=== PATIENT | male | born 1980 | race American Indian/Alaskan Native ===

== ENCOUNTER 2016-12-01 16:35 | Emergency (ER) | payer MEDICAID ==
[2016-12-01 16:43] VITALS: BP 150/99
[2016-12-01] MEDS ORDERED: Penicillin G Benzathine/Procaine 600-600 1.2 Millunits/2 ML Syringe IM ONE ×2 (17:04→17:26)
[2016-12-01] MEDS ORDERED: Ibuprofen 800 MG Tab PO ONE (17:07)
--- NOTE | 2016-12-01 17:10 | EDM.PDOC ---
ED HPI GENERAL MEDICAL PROBLEM - General Chief Complaint: ENT Problem Stated Complaint: ABSCESS TOOTH ACHE Time Seen by Provider: 12/01/16 17:08 Source of Information: Reports: Patient History Limitations: Reports: No Limitations - History of Present Illness INITIAL COMMENTS - FREE TEXT/NARRATIVE: Pt states that he has an abscess for the past 2 days. Onset Date: 11/29/16 Duration: Getting Worse Location: Reports: Head Quality: Reports: Sharp, Throbbing Severity: Moderate Improves with: Reports: Movement Right Upper Gums Pain Score (Numeric/FACES): 5 - Related Data Allergies Allergy/AdvReac Type Severity Reaction Status Date / Time No Known Allergies Allergy Verified 12/01/16 16:39 Home Meds: Home Meds Insulin Glarg,Human.Rec.Analog [LantUS Solostar] 42 unit SUBCUT DAILY 05/11/14 [ History] Aspirin [Ecotrin] 81 mg PO DAILY 10/20/14 [History] Insulin Lispro [HumaLOG] 15 unit SQ TID 10/20/14 [History] Gabapentin [Neurontin] 300 mg PO BEDTIME 08/22/15 [History] Lisinopril [Zestril] 10 mg PO BID 08/22/15 [History] Past Medical History HEENT History: Reports: None Cardiovascular History: Reports: None Respiratory History: Reports: None Gastrointestinal History: Reports: None Genitourinary History: Reports: None Musculoskeletal History: Reports: None Neurological History: Reports: None Psychiatric History: Reports: None Endocrine/Metabolic History: Reports: Diabetes, Type II Hematologic History: Reports: None Immunologic History: Reports: None Oncologic (Cancer) History: Reports: None Dermatologic History: Reports: Cellulitis - Infectious Disease History Infectious Disease History: Reports: MRSA Social & Family History - Family History Family Medical History: Noncontributory HEENT: Reports: None Cardiac: Reports: None Respiratory: Reports: None GI: Reports: None Neurological: Reports: None Psychiatric: Reports: None Endocrine/Metabolic: Reports: None Immunologic: Reports: Other (See Below) Oncologic: Reports: None - Tobacco Use Smoking Status *Q: Current Every Day Smoker Years of Tobacco use: 15 Packs/Tins Daily: 0.5 Used Tobacco, but Quit: No Second Hand Smoke Exposure: No - Caffeine Use Caffeine Use: Reports: Coffee, Energy Drinks, Soda, Tea - Alcohol Use Days Per Week of Alcohol Use: 0 - Recreational Drug Use Recreational Drug Use: No Recreational Drug Type: Reports: Marijuana/Hashish - Living Situation & Occupation Living situation: Reports: Single, with Family Occupation: Disabled ED ROS ENT - Review of Systems Review Of Systems: See Below HEENT: Reports: Other (abscess to roof of mouth) ED EXAM, ENT - Physical Exam Exam: See Below Exam Limited By: No Limitations General Appearance: Alert, WD/WN, No Apparent Distress Mouth/Throat: Dental Abcess, Dental Pain ED ENT PROCEDURES - Additional/Other Procedure(s) Other (Free Text) Procedure(s): dental abscess aspiration with scant purulent drainage. Course - Vital Signs Last Recorded V/S: Last Vital Signs Temp 97.6 F 12/01/16 16:41 Pulse 100 12/01/16 16:41 Resp 16 12/01/16 16:41 BP 150/99 H 12/01/16 16:41 Pulse Ox 99 12/01/16 16:41 - Orders/Labs/Meds Meds: Medications Discontinued Medications Generic Name Dose Route Start Last Admin Trade Name Radha PRN Reason Stop Dose Admin Ibuprofen 800 mg 12/01/16 17:07 Motrin PO 12/01/16 17:08 ONETIME ONE Penicillin G Procaine/Benzathine 2 millunits 12/01/16 17:04 Bicillin C-R 600/600 IM 12/01/16 17:05 ONETIME ONE Departure - Departure Time of Disposition: 17:25 Disposition: Home, Self-Care 01 Condition: Good Clinical Impression: Dental abscess - Discharge Information Instructions: Dental Abscess Forms: ED Department Discharge Additional Instructions: take the antibiotic for 1 week. return for any worsening symptoms. Follow up in 3-4 days in clinic
== END 2016-12-01 17:33 | disposition home or self-care (01) ==
LOC: DL.ED 16:35
DX: K04.7 Periapical abscess without sinus (principal); E11.9 Type 2 diabetes mellitus without complications; F17.210 Nicotine dependence, cigarettes, uncomplicated; Z79.4 Long term (current) use of insulin; Z79.82 Long term (current) use of aspirin
CPT/HCPCS: 41800; 96372; 99282; A9270; J0558

== ENCOUNTER 2017-09-26 23:12 | Emergency (ER) | payer MEDICAID ==
[2017-09-26 23:19] VITALS: BP 178/101
[2017-09-26] MEDS ORDERED: Cephalexin 500 MG Cap PO ONE (23:39)
[2017-09-26] MEDS ORDERED: Acetaminophen 325 MG Tab PO ONE (23:39)
--- NOTE | 2017-09-26 23:39 | EDM.PDOC ---
ED HPI GENERAL MEDICAL PROBLEM - General Chief Complaint: General Stated Complaint: TOOTHACHE [id number] Time Seen by Provider: 09/26/17 23:30 Source of Information: Reports: Patient History Limitations: Reports: No Limitations - History of Present Illness INITIAL COMMENTS - FREE TEXT/NARRATIVE: c/o left dental pain to left lower jaw. Has dental appointment on friday to have tooth extracted. Taking Ibuprofen 800mg without relief Treatments FRINGE KNOTTER: Reports: NSAIDS Left Lower Tooth/Teeth Pain Score (Numeric/FACES): 8 - Related Data Allergies Allergy/AdvReac Type Severity Reaction Status Date / Time No Known Allergies Allergy Verified 09/26/17 23:22 Home Meds: Home Meds Insulin Glarg,Human.Rec.Analog [LantUS Solostar] 42 unit SUBCUT DAILY 05/11/14 [ History] Aspirin [Ecotrin] 81 mg PO DAILY 10/20/14 [History] Insulin Lispro [HumaLOG] 15 unit SQ TID 10/20/14 [History] Past Medical History HEENT History: Reports: None Cardiovascular History: Reports: None Respiratory History: Reports: None Gastrointestinal History: Reports: None Genitourinary History: Reports: None Musculoskeletal History: Reports: None Neurological History: Reports: None Psychiatric History: Reports: None Endocrine/Metabolic History: Reports: Diabetes, Type II Hematologic History: Reports: None Immunologic History: Reports: None Oncologic (Cancer) History: Reports: None Dermatologic History: Reports: Cellulitis - Infectious Disease History Infectious Disease History: Reports: MRSA Social & Family History - Family History Family Medical History: Noncontributory HEENT: Reports: None Cardiac: Reports: None Respiratory: Reports: None GI: Reports: None Neurological: Reports: None Psychiatric: Reports: None Endocrine/Metabolic: Reports: None Immunologic: Reports: Other (See Below) Oncologic: Reports: None - Tobacco Use Smoking Status *Q: Current Every Day Smoker Years of Tobacco use: 15 Packs/Tins Daily: 0.5 Used Tobacco, but Quit: No Second Hand Smoke Exposure: No - Caffeine Use Caffeine Use: Reports: Coffee, Soda - Alcohol Use Days Per Week of Alcohol Use: 0 - Recreational Drug Use Recreational Drug Use: No Recreational Drug Type: Reports: Marijuana/Hashish - Living Situation & Occupation Living situation: Reports: Single, with Family Occupation: Disabled ED ROS GENERAL - Review of Systems Review Of Systems: ROS reveals no pertinent complaints other than HPI. ED EXAM, GENERAL - Physical Exam Exam: See Below Exam Limited By: No Limitations General Appearance: Alert, Mild Distress Ears: Normal External Exam, Normal TMs Nose: Normal Inspection Throat/Mouth: Normal Lips, Normal Teeth (No gross obvious decay. mild swelling outer lower left jaw and tenderness with palpation to lower left.) Head: Atraumatic, Normocephalic Neck: Normal Inspection, Lymphadenopathy (L) (mild) Respiratory/Chest: No Respiratory Distress, Lungs Clear Cardiovascular: Normal Peripheral Pulses, Regular Rate, Rhythm Neurological: Alert, Oriented, Normal Cognition Skin Exam: Warm, Dry, Intact, Normal Color Course - Vital Signs Last Recorded V/S: Last Vital Signs Temp 96.8 F 09/26/17 23:18 Pulse 107 H 09/26/17 23:18 Resp 16 09/26/17 23:18 BP 178/101 H 09/26/17 23:18 Pulse Ox 100 09/26/17 23:18 - Orders/Labs/Meds Meds: Medications Discontinued Medications Generic Name Dose Route Start Last Admin Trade Name Radha PRN Reason Stop Dose Admin Acetaminophen 650 mg 09/26/17 23:39 09/26/17 23:47 Tylenol PO 09/26/17 23:40 650 mg NOW ONE Administration Cephalexin 500 mg 09/26/17 23:39 09/26/17 23:49 Keflex PO 09/26/17 23:40 500 mg ONETIME ONE Administration Departure - Departure Time of Disposition: 23:40 Disposition: Home, Self-Care 01 Condition: Good Clinical Impression: Pain, dental - Discharge Information Instructions: Dental Abscess, [id number] Forms: ED Department Discharge Additional Instructions: alternate tylenol and ibuprofen for discomfort orajel or similar to area as needed keflex 500mg one 4 times daily for one week follow with dentist on Friday as scheduled avoid chewing on affected side avoid extreme temperatures of liquids
== END 2017-09-26 23:51 | disposition home or self-care (01) ==
LOC: DL.ED 23:12
DX: K08.89 Other specified disorders of teeth and supporting structures (principal); E11.9 Type 2 diabetes mellitus without complications; Z79.4 Long term (current) use of insulin; Z79.82 Long term (current) use of aspirin; F17.210 Nicotine dependence, cigarettes, uncomplicated
CPT/HCPCS: 99282; A9270

== ENCOUNTER 2018-03-22 09:40 | Emergency (ER) | payer MEDICAID ==
[2018-03-22 09:49] VITALS: BP 144/82
[2018-03-22] MEDS ORDERED: Azithromycin 250 MG Tab PO ONE (10:02)
[2018-03-22] MEDS ORDERED: predniSONE 20 MG Tab PO ONE (10:03)
--- NOTE | 2018-03-22 10:05 | EDM.PDOC ---
Scribed by Alyssa Donohue 03/22/18 0956 for Rajesh Garrido MD ED HPI GENERAL MEDICAL PROBLEM - General Chief Complaint: ENT Problem Stated Complaint: THROAT Time Seen by Provider: 03/22/18 09:44 Source of Information: Reports: Patient, RN, RN Notes Reviewed History Limitations: Reports: No Limitations - History of Present Illness INITIAL COMMENTS - FREE TEXT/NARRATIVE: Patient presents to ER with complaint of sore throat for a couple of days. He has had subjective fevers. He has not measured his temperature. It hurts to swallow. Denies abdominal pain, nausea or vomiting. No known sick contacts. Onset Date: 03/20/18 Duration: Getting Worse Location: Reports: Other (throat) Quality: Reports: Ache Severity: Moderate Improves with: Reports: None Worsens with: Reports: None Associated Symptoms: Reports: No Other Symptoms Throat Pain Score (Numeric/FACES): 8 - Related Data Allergies Allergy/AdvReac Type Severity Reaction Status Date / Time No Known Allergies Allergy Verified 03/22/18 09:47 Home Meds: Home Meds Insulin Glarg,Human.Rec.Analog [LantUS Solostar] 42 unit SUBCUT DAILY 05/11/14 [ History] Aspirin [Ecotrin] 81 mg PO DAILY 10/20/14 [History] Insulin Lispro [HumaLOG] 15 unit SQ TID 10/20/14 [History] Past Medical History HEENT History: Reports: None Cardiovascular History: Reports: None Respiratory History: Reports: None Gastrointestinal History: Reports: None Genitourinary History: Reports: None Musculoskeletal History: Reports: None Neurological History: Reports: None Psychiatric History: Reports: None Endocrine/Metabolic History: Reports: Diabetes, Type II Hematologic History: Reports: None Immunologic History: Reports: None Oncologic (Cancer) History: Reports: None Dermatologic History: Reports: Cellulitis - Infectious Disease History Infectious Disease History: Reports: MRSA Social & Family History - Family History Family Medical History: Noncontributory HEENT: Reports: None Cardiac: Reports: None Respiratory: Reports: None GI: Reports: None Neurological: Reports: None Psychiatric: Reports: None Endocrine/Metabolic: Reports: None Immunologic: Reports: Other (See Below) Oncologic: Reports: None - Caffeine Use Caffeine Use: Reports: Coffee, Soda - Living Situation & Occupation Living situation: Reports: Single, with Family Occupation: Disabled ED ROS ENT - Review of Systems Review Of Systems: ROS reveals no pertinent complaints other than HPI. ED EXAM, ENT - Physical Exam Exam: See Below Exam Limited By: No Limitations General Appearance: Alert, WD/WN, No Apparent Distress Eye Exam: Bilateral Eye: Normal Inspection Ears: Normal External Exam, Normal Canal, Hearing Grossly Normal, Normal TMs Nose: Normal Inspection, Normal Mucousa, No Blood Mouth/Throat: Normal Lips, Pharyngeal Erythema, Throat Pain, Tonsillar Exudates , Tonsillar Swelling (L>Rt) Head: Atraumatic, Normocephalic Neck: Other (shoddy cervical lymphadenopathy. No nuchal rigidity. ) Respiratory/Chest: No Respiratory Distress, Lungs Clear, Normal Breath Sounds, No Accessory Muscle Use, Chest Non-Tender Cardiovascular: Regular Rate, Rhythm Neurological: Alert, Oriented, No Motor/Sensory Deficits Psychiatric: Normal Mood Skin: Warm, Dry, Intact, Normal Color, No Rash Course - Vital Signs Last Recorded V/S: Last Vital Signs Temp 35.9 C 03/22/18 09:48 Pulse 117 H 03/22/18 09:48 Resp 16 03/22/18 09:48 BP 144/82 H 03/22/18 09:48 Pulse Ox 100 03/22/18 09:48 - Orders/Labs/Meds Labs: Rapid strep: Positive. Meds: Medications Discontinued Medications Generic Name Dose Route Start Last Admin Trade Name Radha PRN Reason Stop Dose Admin Azithromycin 500 mg 03/22/18 10:02 Zithromax PO 03/22/18 10:03 ONETIME ONE Prednisone 60 mg 03/22/18 10:03 Prednisone PO 03/22/18 10:04 ONETIME ONE Departure - Departure Time of Disposition: 10:03 Disposition: Home, Self-Care 01 Condition: Good Clinical Impression: Strep pharyngitis - Discharge Information *PRESCRIPTION DRUG MONITORING PROGRAM REVIEWED*: Not Applicable *COPY OF PRESCRIPTION DRUG MONITORING REPORT IN PATIENT TROY: Not Applicable Instructions: Strep Throat Forms: ED Department Discharge Additional Instructions: RX: Zithromax 250mg. RX: Prednisone 20mg. Frequent salt water gargles until improved. Follow up in clinic in 2 to 3 days if not improved. I have read and agree with the documentation that has been completed regarding this visit. By signing this record, I attest that the documentation was completed in my physical presence and is an accurate record of the encounter.
== END 2018-03-22 10:12 | disposition home or self-care (01) ==
LOC: DL.ED 09:40
DX: J02.0 Streptococcal pharyngitis (principal); E11.9 Type 2 diabetes mellitus without complications; Z79.4 Long term (current) use of insulin; Z79.82 Long term (current) use of aspirin
CPT/HCPCS: 87430; 99283; A9270

== ENCOUNTER 2019-07-17 00:51 | Emergency (ER) | payer MEDICAID ==
[2019-07-17] MEDS ORDERED: Insulin Regular, Human 100 Units/ML 3 ML Vial SUBCUT ONE (01:25)
[2019-07-17] MEDS ORDERED: Cephalexin 500 MG Cap PO ONE (01:25)
--- NOTE | 2019-07-17 01:34 | EDM.PDOC ---
ED HPI GENERAL MEDICAL PROBLEM - General Chief Complaint: Skin Complaint Stated Complaint: DIABETIC, TOE INFECTED Time Seen by Provider: 07/17/19 01:20 Source of Information: Reports: Patient History Limitations: Reports: No Limitations - History of Present Illness INITIAL COMMENTS - FREE TEXT/NARRATIVE: the patient comes emergency department today with complaints of an ingrown toenail to the right great toe. He hit his toe a couple of weeks ago on the edge of a bed frame and since then he has developed a ingrown toenail. He does notice some clear drainage as well as some mild redness and swelling on the toe. He does not have much pain. He is a diabetic who has not taken his insulin for 2 months because his Medicaid has and he just hasn't had time in the last 2 months to go and fill the paperwork to get his Medicaid reactivated. He refuses to go to [facility] to get his medications. He relates that he just doesn't have time to go all the way up to [facility]. He is currently unemployed and lives at home with his girlfriend. When he does have his insulin he does not use his NovoLog because it makes him feel like he's hypoglycemic. So he only takes his Lantus. He has no abdominal pain. No nausea no vomiting. No weakness dizziness lightheadedness. - Related Data Allergies Allergy/AdvReac Type Severity Reaction Status Date / Time No Known Allergies Allergy Verified 07/17/19 01:03 Home Meds: Home Meds Insulin Glarg,Human.Rec.Analog [LantUS Solostar] 50 unit SUBCUT BEDTIME [History] Aspirin [Ecotrin] 81 mg PO DAILY 10/20/14 [History] Insulin Lispro [HumaLOG] 15 unit SQ TID 10/20/14 [History] Albuterol [Proventil Neb Soln] 1 dose INH ASDIRECTED PRN 06/09/19 [History] Ibuprofen [Motrin] 800 mg PO ASDIRECTED 06/09/19 [History] Past Medical History HEENT History: Reports: None Cardiovascular History: Reports: None Respiratory History: Reports: Other (See Below) Other Respiratory History: URI Gastrointestinal History: Reports: None Genitourinary History: Reports: None Musculoskeletal History: Reports: None Neurological History: Reports: None Psychiatric History: Reports: None Endocrine/Metabolic History: Reports: Diabetes, Type II Hematologic History: Reports: None Immunologic History: Reports: None Oncologic (Cancer) History: Reports: None Dermatologic History: Reports: Cellulitis - Infectious Disease History Infectious Disease History: Reports: MRSA - Past Surgical History Head Surgeries/Procedures: Reports: None Social & Family History - Family History Family Medical History: Noncontributory HEENT: Reports: None Cardiac: Reports: None Respiratory: Reports: None GI: Reports: None Neurological: Reports: None Psychiatric: Reports: None Endocrine/Metabolic: Reports: None Immunologic: Reports: Other (See Below) Oncologic: Reports: None - Caffeine Use Caffeine Use: Reports: Coffee, Soda, Tea - Living Situation & Occupation Living situation: Reports: Single, with Family Occupation: Disabled ED ROS GENERAL - Review of Systems Review Of Systems: Comprehensive ROS is negative, except as noted in HPI. ED EXAM, SKIN/RASH Exam: See Below Exam Limited By: No Limitations General Appearance: Alert, WD/WN, No Apparent Distress Respiratory/Chest: No Respiratory Distress, Lungs Clear, Normal Breath Sounds Cardiovascular: Normal Peripheral Pulses, Regular Rate, Rhythm Peripheral Pulses: 2+: Posterior Tibial (L), Posterior Tibial (R), Dorsalis Pedis (L), Dorsalis Pedis (R) GI/Abdominal: Normal Bowel Sounds, Soft, Non-Tender Extremities: No: Normal Inspection (on the medial aspect of the right great toe there is a small amount of ingrownail with some crusting and clear drainage. There is a very small amount of mild erythema no swelling. Capillary refill is normal. Rest of the foot is unremarkable.) Neurological: Alert, Oriented, No Motor/Sensory Deficits Psychiatric: Normal Affect Skin: Warm, Dry, Intact Course - Orders/Labs/Meds Orders: Active Orders 24 hr Category Date Time Status Accu Check [Blood Glucose Check, Bedside] [RC] ONETIME Care 07/17/19 00:59 Active Insulin Regular, Human [HumuLIN R] Med 07/17/19 01:25 Once 10 unit SUBCUT ONETIME ONE cephALEXin [Keflex] Med 07/17/19 01:25 Once 500 mg PO ONETIME ONE - Re-Assessments/Exams Free Text/Narrative Re-Assessment/Exam: 07/17/19 01:40 Blood sugar 351 Regular insulin 10 units. the toe does not really appear to be infected is more inflamed and irritated from the ingrown toenail. Despite this the patient is a diabetic who is poorly controlled at best so I will put him on antibiotics. I typically would be able to do a partial matrixectomy on this patient in the emergency department although with his uncontrolled diabetes I don't think it's appropriate and should be done by podiatry on the outpatient clinic for appropriate follow-up and management. I discussed at length the importance of him getting his medical assistance taking care of that he can control his diabetes. If he does not see podiatry this problem with his told his recur. I also stressed that as he is having problems with his insulin maybe he should go to [facility] where he is able to get his medications but he doesn't want to go all the way out there. I spent an extended period of time talking with this patient about the importance of self driven care for his diabetes and to follow medical recommendations or he could have worsening complications from his DM. I discussed ways of changing his Novolog so that he doesn't have the low feeling even though his blood sugars are high that his body is accustomed to. He is understanding of this and his questions answered. Departure - Departure Time of Disposition: :29 Disposition: Home, Self-Care 01 Clinical Impression: Ingrown toenail of right foot with infection, Diabetic foot infection, Hyperglycemia, Poor compliance with medication - Discharge Information Instructions: Hyperglycemia, [id number], Ingrown Toenail Additional Instructions: GET TO THE COURT HOUSE AND GET YOUR MEDICAID ACTIVE SO YOU CAN GET YOUR INSULIN Since the Novolog makes you feel low. Instead of not taking it at all try to cut it in half and let your body be more familiar with a lower blood sugar and slowly increase to the 12 units three times a day. This is much better for you than just not taking it at all. See your PCP in a week for recheck of your blood sugars. Set up an appointment with podiatry to get the ingrown toenail repaired. Soak your foot 3-4 times a day in warm water with alee dish soap and epsom salts until you see podiatry. Cephalexin 1 capsule 4 times a day for the next 7 days. First dose given in the ED and RX given to the patient. Return to the ED if new or worsening symptoms. - My Orders Last 24 Hours: My Active Orders 07/17/19 00:59 Accu Check [Blood Glucose Check, Bedside] [RC] ONETIME 07/17/19 01:25 Insulin Regular, Human [HumuLIN R] 10 unit SUBCUT ONETIME ONE cephALEXin [Keflex] 500 mg PO ONETIME ONE - Assessment/Plan Last 24 Hours: My Active Orders 07/17/19 00:59 Accu Check [Blood Glucose Check, Bedside] [RC] ONETIME 07/17/19 01:25 Insulin Regular, Human [HumuLIN R] 10 unit SUBCUT ONETIME ONE cephALEXin [Keflex] 500 mg PO ONETIME ONE Assessment:: Left great toe ingrown Hyperglycemia of DM II with poor medical compliance. Plan: GET TO THE [facility] AND GET YOUR MEDICAID ACTIVE SO YOU CAN GET YOUR INSULIN Since the Novolog makes you feel low. Instead of not taking it at all try to cut it in half and let your body be more familiar with a lower blood sugar and slowly increase to the 12 units three times a day. This is much better for you than just not taking it at all. See your PCP in a week for recheck of your blood sugars. Set up an appointment with podiatry to get the ingrown toenail repaired. Soak your foot 3-4 times a day in warm water with alee dish soap and epsom salts until you see podiatry. Cephalexin 1 capsule 4 times a day for the next 7 days. First dose given in the ED and RX given to the patient. Return to the ED if new or worsening symptoms.
[2019-07-17 01:35] VITALS: BP 171/100; PULSE 103
== END 2019-07-17 01:41 | disposition home or self-care (01) ==
LOC: DL.ED 00:51
DX: L60.0 Ingrowing nail (principal); E11.65 Type 2 diabetes mellitus with hyperglycemia; E11.621 Type 2 diabetes mellitus with foot ulcer; Z79.4 Long term (current) use of insulin; Z79.82 Long term (current) use of aspirin
CPT/HCPCS: 82962; 99283; A9270; J1815; 99284

== ENCOUNTER 2020-03-09 21:21 | Emergency (ER) | payer MEDICAID ==
[2020-03-09 21:36] VITALS: BP 171/95; PULSE 91
[2020-03-09] MEDS ORDERED: Hydrocortisone/Neomycin/Polymyxin B Otic Susp 10 ML Bottle ONE (21:47)
--- NOTE | 2020-03-09 21:49 | EDM.PDOC ---
ED HPI GENERAL MEDICAL PROBLEM - General Chief Complaint: ENT Problem Stated Complaint: EAR INFECTION CLOGGED EAR CANAL Time Seen by Provider: 03/09/20 21:46 Source of Information: Reports: Patient History Limitations: Reports: No Limitations - History of Present Illness INITIAL COMMENTS - FREE TEXT/NARRATIVE: 2 days h/o right ear pain and can't hear well. Right Ear Pain Score (Numeric/FACES): 4 - Related Data Allergies Allergy/AdvReac Type Severity Reaction Status Date / Time No Known Allergies Allergy Verified 07/17/19 01:03 Home Meds: Home Meds Insulin Glarg,Human.Rec.Analog [LantUS Solostar] 50 unit SUBCUT BEDTIME 05/11/14 [History] Aspirin [Ecotrin] 81 mg PO DAILY 10/20/14 [History] Insulin Lispro [HumaLOG] 15 unit SQ TID 10/20/14 [History] Albuterol [Proventil Neb Soln] 1 dose INH ASDIRECTED PRN 06/09/19 [History] Ibuprofen [Motrin] 800 mg PO ASDIRECTED 06/09/19 [History] Past Medical History HEENT History: Reports: None Cardiovascular History: Reports: None Respiratory History: Reports: Other (See Below) Other Respiratory History: URI Gastrointestinal History: Reports: None Genitourinary History: Reports: None Musculoskeletal History: Reports: None Neurological History: Reports: None Psychiatric History: Reports: None Endocrine/Metabolic History: Reports: Diabetes, Type II Hematologic History: Reports: None Immunologic History: Reports: None Oncologic (Cancer) History: Reports: None Dermatologic History: Reports: Cellulitis - Infectious Disease History Infectious Disease History: Reports: MRSA - Past Surgical History Head Surgeries/Procedures: Reports: None Social & Family History - Family History Family Medical History: Noncontributory HEENT: Reports: None Cardiac: Reports: None Respiratory: Reports: None GI: Reports: None Neurological: Reports: None Psychiatric: Reports: None Endocrine/Metabolic: Reports: None Immunologic: Reports: Other (See Below) Oncologic: Reports: None - Tobacco Use Smoking Status *Q: Current Every Day Smoker Years of Tobacco use: 15 Packs/Tins Daily: 1 - Caffeine Use Caffeine Use: Reports: Coffee, Soda - Recreational Drug Use Recreational Drug Use: No - Living Situation & Occupation Living situation: Reports: Single, with Family Occupation: Disabled ED ROS ENT - Review of Systems Review Of Systems: Comprehensive ROS is negative, except as noted in HPI. ED EXAM, ENT - Physical Exam Exam: See Below Exam Limited By: No Limitations General Appearance: Alert, WD/WN, No Apparent Distress Ears: Canal Swelling, Cerumen Impaction Mouth/Throat: Normal Inspection Head: Atraumatic Neck: Non-Tender, Full Range of Motion Respiratory/Chest: No Respiratory Distress Cardiovascular: Regular Rate, Rhythm GI/Abdominal: Soft, Non-Tender (Male) Exam: Deferred Rectal (Males) Exam: Deferred Neurological: Alert, Oriented, Normal Cognition, Normal Gait, No Motor/Sensory Deficits Psychiatric: Normal Affect, Normal Mood Skin: Warm, Dry, Normal Color Lymphatic: No Adenopathy Course - Vital Signs Last Recorded V/S: Last Vital Signs Temp 36.7 C 03/09/20 21:34 Pulse 91 03/09/20 21:34 Resp 16 03/09/20 21:34 BP 171/95 H 03/09/20 21:34 Pulse Ox 98 03/09/20 21:34 Departure - Departure Time of Disposition: 21:47 Disposition: Home, Self-Care 01 Condition: Good Clinical Impression: Otitis externa Qualifiers: Otitis externa type: diffuse Chronicity: acute Laterality: right Qualified Code(s): H60.311 - Diffuse otitis externa, right ear Cerumen impaction Qualifiers: Laterality: right Qualified Code(s): H61.21 - Impacted cerumen, right ear - Discharge Information Instructions: Otitis Externa, [id number] Additional Instructions: 1) don't get water into ear 2) see clinic tomorrow for ENT REFERRAL FOR WAX IMPACTION rx togo; corticosporin otic 2 drops qid x 10 days Sepsis Event Note (ED) - Evaluation Sepsis Screening Result: No Definite Risk - Focused Exam Vital Signs: Vital Signs Temp Pulse Resp BP Pulse Ox 03/09/20 21:34 36.7 C 91 16 171/95 H 98
== END 2020-03-09 21:51 | disposition home or self-care (01) ==
LOC: DL.ED 21:21
DX: H60.311 Diffuse otitis externa, right ear (principal); H60.501 Unspecified acute noninfective otitis externa, right ear; H61.21 Impacted cerumen, right ear; E11.9 Type 2 diabetes mellitus without complications; F17.210 Nicotine dependence, cigarettes, uncomplicated; Z79.4 Long term (current) use of insulin; Z79.82 Long term (current) use of aspirin; Z79.899 Other long term (current) drug therapy
CPT/HCPCS: 99282; A9270; 99283

== ENCOUNTER 2020-06-08 16:59 | Emergency (ER) | payer MEDICAID ==
[2020-06-08 17:13] VITALS: BP 186/105; PULSE 110
[2020-06-08] MEDS ORDERED: cefTRIAXone 250 MG Vial IM ONE (18:06)
--- NOTE | 2020-06-08 18:12 | EDM.PDOC ---
ED HPI GENERAL MEDICAL PROBLEM - General Chief Complaint: Genitourinary Problem Stated Complaint: NOT FEELING WELL Time Seen by Provider: 06/08/20 17:15 Source of Information: Reports: Patient, RN History Limitations: Reports: No Limitations - History of Present Illness INITIAL COMMENTS - FREE TEXT/NARRATIVE: 39 year-old male who present to the Er with complaints of dysuria and milky discharge. He reports dysuria began two days ago and milky discharge was noted today with urination. He had unprotected sex with a friend one month ago. He is unsure of her STD status. He denies any other partners after this incident. He denies any fever, chills, SOB, chest pain,urinary frequency/urgency and abdominal pain. Admits to having an STD once but cannot remember the type. - Related Data Allergies Allergy/AdvReac Type Severity Reaction Status Date / Time No Known Allergies Allergy Verified 06/08/20 17:13 Home Meds: Home Meds Insulin Glarg,Human.Rec.Analog [LantUS Solostar] 50 unit SUBCUT BEDTIME 05/11/14 [History] Aspirin [Ecotrin] 81 mg PO DAILY 10/20/14 [History] Insulin Lispro [HumaLOG] 10 unit SQ TID 10/20/14 [History] Albuterol [Proventil Neb Soln] 1 dose INH ASDIRECTED PRN 06/09/19 [History] Ibuprofen [Motrin] 800 mg PO ASDIRECTED 06/09/19 [History] lisinopriL [Lisinopril] 10 mg PO DAILY 06/08/20 [History] Past Medical History HEENT History: Reports: None Cardiovascular History: Reports: Hypertension Respiratory History: Reports: Other (See Below) Other Respiratory History: URI Gastrointestinal History: Reports: None Genitourinary History: Reports: None Musculoskeletal History: Reports: None Neurological History: Reports: None Psychiatric History: Reports: None Endocrine/Metabolic History: Reports: Diabetes, Type II Hematologic History: Reports: None Immunologic History: Reports: None Oncologic (Cancer) History: Reports: None Dermatologic History: Reports: Cellulitis - Infectious Disease History Infectious Disease History: Reports: MRSA - Past Surgical History Head Surgeries/Procedures: Reports: None Social & Family History - Family History Family Medical History: No Pertinent Family History HEENT: Reports: None Cardiac: Reports: None Respiratory: Reports: None GI: Reports: None Neurological: Reports: None Psychiatric: Reports: None Endocrine/Metabolic: Reports: None Immunologic: Reports: Other (See Below) Oncologic: Reports: None - Tobacco Use Tobacco Use Status *Q: Current Every Day Tobacco User Years of Tobacco use: 15 Packs/Tins Daily: 1 Second Hand Smoke Exposure: Yes - Caffeine Use Caffeine Use: Reports: Coffee, Soda - Recreational Drug Use Recreational Drug Use: No - Living Situation & Occupation Living situation: Reports: Single, with Family Occupation: Disabled ED ROS GENERAL - Review of Systems Review Of Systems: Comprehensive ROS is negative, except as noted in HPI. ED EXAM, RENAL/ - Physical Exam Exam: See Below Exam Limited By: No Limitations General Appearance: Alert, No Apparent Distress, Anxious Respiratory/Chest: No Respiratory Distress, Lungs Clear, Normal Breath Sounds, No Accessory Muscle Use, Chest Non-Tender Cardiovascular: Normal Peripheral Pulses, Regular Rate, Rhythm, No Edema, No Gallop, No JVD, No Murmur, No Rub GI/Abdominal: Normal Bowel Sounds, Soft, Non-Tender, No Organomegaly, No Distention, No Abnormal Bruit, No Mass (Male) Exam: Deferred Rectal (Males) Exam: Deferred Back Exam: Normal Inspection, Full Range of Motion. No: CVA Tenderness (L), CVA Tenderness (R) Neurological: Alert, Oriented Psychiatric: Anxious Skin Exam: Warm, Dry Lymphatic: No Adenopathy Course - Vital Signs Last Recorded V/S: Last Vital Signs Temp 97.5 F 06/08/20 17:08 Pulse 110 H 06/08/20 17:08 Resp 18 06/08/20 17:08 BP 186/105 H 06/08/20 17:08 Pulse Ox 99 06/08/20 17:08 - Orders/Labs/Meds Orders: Active Orders 24 hr Category Date Time Status CHLAMYDIA AND GONORRHEA BY [facility] Urgent Lab 06/08/20 17:21 Received Labs: Laboratory Tests 06/08/20 Range/Units 17:21 Urine Color Yellow (YELLOW) Urine Appearance Turbid (CLEAR) Urine pH 6.0 (5.0-9.0) Ur Specific Jackson 1.025 (1.005-1.030) Urine Protein >=300 H (NEGATIVE) Urine Glucose (UA) 500 H (NEGATIVE) Urine Ketones Negative (NEGATIVE) Urine Occult Blood Moderate H (NEGATIVE) Urine Nitrite Negative (NEGATIVE) Urine Bilirubin Negative (NEGATIVE) Urine Urobilinogen 0.2 (0.2-1.0) mg/dL Ur Leukocyte Esterase Negative (NEGATIVE) Urine RBC 5-10 H /HPF Urine WBC >100 H (0-5/HPF) /HPF Ur Epithelial Cells Rare (NOT SEEN) /HPF Amorphous Sediment Rare (NOT SEEN) /HPF Urine Bacteria Rare (0-FEW/HPF) /HPF Urine Mucus Rare (NOT SEEN) /LPF - Re-Assessments/Exams Free Text/Narrative Re-Assessment/Exam: Review exam findings and urinalysis with patient. Will treat him for gonorrhea as the std test is a sendout. Encouraged him to abstained from sex for at least a week. Encouraged safe sex and also to inform his partner that he was treated for an STD. Patient verbalized understanding, Departure - Departure Time of Disposition: 18:14 Disposition: Home, Self-Care 01 Condition: Good Clinical Impression: Concern about sexually transmitted disease in male without diagnosis - Discharge Information Instructions: Sexually Transmitted Disease, [id number] Additional Instructions: Encouraged safe sex and education provided. Sepsis Event Note (ED) - Evaluation Sepsis Screening Result: No Definite Risk - Focused Exam Vital Signs: Vital Signs Temp Pulse Resp BP Pulse Ox 06/08/20 17:08 97.5 F 110 H 18 186/105 H 99 - My Orders Last 24 Hours: My Active Orders 06/08/20 17:21 CHLAMYDIA AND GONORRHEA BY [facility] Urgent - Assessment/Plan Last 24 Hours: My Active Orders 06/08/20 17:21 CHLAMYDIA AND GONORRHEA BY [facility] Urgent
[2020-06-08] MEDS: Azithromycin 250 MG Tab PO ONE (18:17)
[2020-06-08] MEDS: cefTRIAXone 250 MG, Lidocaine 1% 0.9 ML IM ONE ×2 (18:20)
== END 2020-06-08 18:45 | disposition home or self-care (01) ==
LOC: DL.ED 16:59
DX: Z11.3 Encounter for screening for infections with a predominantly sexual mode of transmission (principal); I10 Essential (primary) hypertension; E11.9 Type 2 diabetes mellitus without complications; F17.210 Nicotine dependence, cigarettes, uncomplicated; Z79.4 Long term (current) use of insulin; Z79.82 Long term (current) use of aspirin; Z79.899 Other long term (current) drug therapy
CPT/HCPCS: 81001; 87491; 87591; 96372; 99283; A9270; J0696; J2001; 99282

== ENCOUNTER 2021-02-10 19:37 | Emergency (ER) | payer MEDICAID ==
[2021-02-10 19:50] VITALS: BP 162/92; PULSE 89
[2021-02-10] MEDS ORDERED: Amoxicillin/Clavulanate K 875-125 MG Tab PO ONE (20:10)
--- NOTE | 2021-02-10 20:13 | EDM.PDOC ---
ED HPI GENERAL MEDICAL PROBLEM - General Chief Complaint: General Stated Complaint: TEETH, INFECTION IN MOUTH Time Seen by Provider: 02/10/21 20:08 Source of Information: Reports: Patient, RN Notes Reviewed - History of Present Illness INITIAL COMMENTS - FREE TEXT/NARRATIVE: Pt is here for a dental infection. He noted that it was starting to get sore yesterday, but this morning he woke up and it was swollen and painful. He has had several teeth removed for recurrent infections and knows he has more that need to be removed. He denies any fevers or chills. He is otherwise feeling well. Duration: Day(s): (1-2) - Related Data Allergies Allergy/AdvReac Type Severity Reaction Status Date / Time No Known Allergies Allergy Verified 06/08/20 17:13 Home Meds: Home Meds Insulin Glarg,Human.Rec.Analog [LantUS Solostar] 50 unit SUBCUT BEDTIME 05/11/14 [History] Aspirin [Ecotrin] 81 mg PO DAILY 10/20/14 [History] Insulin Lispro [HumaLOG] 10 unit SQ TID 10/20/14 [History] Albuterol [Proventil Neb Soln] 1 dose INH ASDIRECTED PRN 06/09/19 [History] Ibuprofen [Motrin] 800 mg PO ASDIRECTED 06/09/19 [History] lisinopriL [Lisinopril] 10 mg PO DAILY 06/08/20 [History] Past Medical History HEENT History: Reports: None Cardiovascular History: Reports: Hypertension Respiratory History: Reports: Other (See Below) Other Respiratory History: URI Gastrointestinal History: Reports: None Genitourinary History: Reports: None Musculoskeletal History: Reports: None Neurological History: Reports: None Psychiatric History: Reports: None Endocrine/Metabolic History: Reports: Diabetes, Type II Hematologic History: Reports: None Immunologic History: Reports: None Oncologic (Cancer) History: Reports: None Dermatologic History: Reports: Cellulitis - Infectious Disease History Infectious Disease History: Reports: MRSA - Past Surgical History Head Surgeries/Procedures: Reports: None Social & Family History - Family History Family Medical History: No Pertinent Family History HEENT: Reports: None Cardiac: Reports: None Respiratory: Reports: None GI: Reports: None Neurological: Reports: None Psychiatric: Reports: None Endocrine/Metabolic: Reports: None Immunologic: Reports: Other (See Below) Oncologic: Reports: None - Tobacco Use Tobacco Use Status *Q: Current Every Day Tobacco User Years of Tobacco use: 20 Packs/Tins Daily: 0.5 - Caffeine Use Caffeine Use: Reports: Coffee, Soda - Living Situation & Occupation Living situation: Reports: Single, with Family Occupation: Disabled ED ROS GENERAL - Review of Systems Review Of Systems: Comprehensive ROS is negative, except as noted in HPI. ED EXAM, GENERAL - Physical Exam Exam: See Below Exam Limited By: No Limitations General Appearance: Alert, No Apparent Distress Eye Exam: Bilateral Eye: Normal Inspection Ears: Normal External Exam Throat/Mouth: Normal Voice, No Airway Compromise, Inflammation, Other (several missing teeth and caries noted) Neck: Supple, Non-Tender Respiratory/Chest: No Respiratory Distress, Lungs Clear, Normal Breath Sounds, No Accessory Muscle Use Cardiovascular: Normal Peripheral Pulses, Regular Rate, Rhythm, No Murmur GI/Abdominal: Soft, Non-Tender (Male) Exam: Deferred Rectal (Males) Exam: Deferred Neurological: Alert, Oriented, Normal Cognition Psychiatric: Normal Affect, Normal Mood Skin Exam: Warm, Dry, Intact, Normal Color, No Rash Course - Vital Signs Last Recorded V/S: Last Vital Signs Temp 96.8 F L 02/10/21 19:47 Pulse 89 02/10/21 19:47 Resp 18 02/10/21 19:47 BP 162/92 H 02/10/21 19:47 Pulse Ox 100 02/10/21 19:47 Departure - Departure Time of Disposition: 20:15 Disposition: Home, Self-Care 01 Condition: Good Clinical Impression: Dental infection - Discharge Information *PRESCRIPTION DRUG MONITORING PROGRAM REVIEWED*: Not Applicable *COPY OF PRESCRIPTION DRUG MONITORING REPORT IN PATIENT TROY: Not Applicable Additional Instructions: Augmentin twice daily for 7 days Tylenol and ibuprofen as needed for pain relief Follow up with your dentist Sepsis Event Note (ED) - Evaluation Sepsis Screening Result: No Definite Risk - Focused Exam Vital Signs: Vital Signs Temp Pulse Resp BP Pulse Ox 02/10/21 19:47 96.8 F L 89 18 162/92 H 100
== END 2021-02-10 20:21 | disposition home or self-care (01) ==
LOC: DL.ED 19:37
DX: K04.7 Periapical abscess without sinus (principal); I10 Essential (primary) hypertension; E11.9 Type 2 diabetes mellitus without complications; Z79.899 Other long term (current) drug therapy; Z79.4 Long term (current) use of insulin; Z72.0 Tobacco use
CPT/HCPCS: 99282; A9270

== ENCOUNTER 2021-11-04 02:45 | Emergency (ER) | payer MEDICAID ==
[2021-11-04 03:24] VITALS: BP 157/103; PULSE 103
[2021-11-04] MEDS ORDERED: Sodium Chloride 0.9% 1,000 ML IV ONE (03:40)
[2021-11-04] MEDS ORDERED: Glucagon,Human Recombinant 1 MG Vial IM PRN (03:42)
[2021-11-04] MEDS ORDERED: 50% Dextrose in Water 50 ML Syringe IVPUSH PRN (03:42)
[2021-11-04] MEDS ORDERED: Insulin Regular, Human 100 Units/ML 3 ML Vial IV ONE (03:42)
[2021-11-04 04:03] LABS: CHLORIDE,CL 100 mmol/L (98-107); SODIUM,NA 134 mmol/L (136-145)
== END 2021-11-04 05:07 | disposition home or self-care (01) ==
LOC: DL.ED 02:45
DX: E11.65 Type 2 diabetes mellitus with hyperglycemia (principal); I10 Essential (primary) hypertension; F17.210 Nicotine dependence, cigarettes, uncomplicated; Z79.899 Other long term (current) drug therapy; Z79.82 Long term (current) use of aspirin; Z79.4 Long term (current) use of insulin
CPT/HCPCS: 36415; 80053; 81001; 82009; 82947; 83605; 85025; 96360; 99284; J1815; J7030

== ENCOUNTER 2022-11-09 22:20 | Emergency (ER) | payer MEDICAID ==
[2022-11-09] MEDS ORDERED: Sodium Chloride 0.9% 1,000 ML IV ONE (23:16)
[2022-11-09] MEDS ORDERED: Sodium Chloride 0.9% 10 ML Syringe FLUSH PRN (23:16)
[2022-11-09] MEDS: Iopamidol 755 Mg/ML 100 ML Bottle IVPUSH ONE (23:34)
[2022-11-09] MEDS: Ketorolac 30 MG/ML SDV IVPUSH ONE ×2 (23:34→23:36)
[2022-11-09 23:39] LABS: BASOPHILS PERCENT AUTO 0.5 % (0.0-1.0); EOSINOPHILS PERCENT AUTO 4.3 % (1.0-3.0); HEMATOCRIT 37.5 % (40.0-54.0); HEMOGLOBIN 12.8 g/dL (14.0-18.0); LYMPHOCYTES PERCENT AUTO 15.1 % (20.5-50.1); MEAN CORPUSCULAR HEMOGLOBIN 29.4 pg (27.0-34.0); MEAN CORPUSCULAR HGB CONC 34.1 g/dL (33.0-35.0); MEAN CORPUSCULAR VOLUME 86.2 fL (80-100); MONOCYTES PERCENT AUTO 6.4 % (2-8); NEUTROPHILS PERCENT AUTO 73.7 % (42.2-75.2); PLATELET COUNT,PLT 372 10^3/uL (150-450); RED BLOOD CELL COUNT 4.35 10^6/uL (4.6-6.2); WHITE BLOOD CELL COUNT,WBC 17.8 10^3/uL (5.0-10.0)
[2022-11-09 23:58] LABS: ANION GAP 12.1 mEq/L (7-13); CALCIUM 8.8 mg/dL (8.5-10.1); CREATININE 1.95 mg/dL (0.70-1.30); EST CRCL DRUG DOSING (CG) 51.47 mL/min; POTASSIUM,K 4.1 mmol/L (3.5-5.1)
[2022-11-10 00:11] VITALS: BP 133/92; PULSE 108
[2022-11-12] MEDS: Iopamidol 755 Mg/ML 100 ML Bottle IVPUSH ONE (10:18)
== END 2022-11-10 01:14 | disposition home or self-care (01) ==
LOC: DL.ED 22:20
DX: R07.9 Chest pain, unspecified (principal); D72.829 Elevated white blood cell count, unspecified; E78.00 Pure hypercholesterolemia, unspecified; I10 Essential (primary) hypertension; J45.909 Unspecified asthma, uncomplicated; E11.21 Type 2 diabetes mellitus with diabetic nephropathy; Z79.4 Long term (current) use of insulin; Z79.899 Other long term (current) drug therapy; Z72.0 Tobacco use
CPT/HCPCS: 36415; 71046; 80048; 84484; 85025; 85379; 87040; 93005; 96361; 96374; 99285; J1885; J7050; J3490; Q9967

== ENCOUNTER 2022-11-13 17:38 | Emergency (ER) | payer MEDICAID ==
[2022-11-13] MEDS ORDERED: Sodium Chloride 0.9% 10 ML Syringe FLUSH PRN (17:58)
[2022-11-13 18:14] LABS: BASOPHILS PERCENT AUTO 0.4 % (0.0-1.0); EOSINOPHILS PERCENT AUTO 4.1 % (1.0-3.0); HEMATOCRIT 32.5 % (40.0-54.0); HEMOGLOBIN 10.8 g/dL (14.0-18.0); LYMPHOCYTES PERCENT AUTO 10.1 % (20.5-50.1); MEAN CORPUSCULAR HEMOGLOBIN 29.1 pg (27.0-34.0); MEAN CORPUSCULAR HGB CONC 33.2 g/dL (33.0-35.0); MEAN CORPUSCULAR VOLUME 87.6 fL (80-100); MONOCYTES PERCENT AUTO 6.8 % (2-8); NEUTROPHILS PERCENT AUTO 78.6 % (42.2-75.2); PLATELET COUNT,PLT 386 10^3/uL (150-450); RED BLOOD CELL COUNT 3.71 10^6/uL (4.6-6.2); WHITE BLOOD CELL COUNT,WBC 18.3 10^3/uL (5.0-10.0)
[2022-11-13 18:16] VITALS: BP 183/101; PULSE 104
[2022-11-13 18:33] LABS: B-TYPE NATRIURETIC PEPTIDE,BNP 89 pg/ml (0-100)
[2022-11-13 18:37] LABS: INR 0.9 (0.9-1.2); PTT,PARTIAL THROMBOPLSTIN TIME 31.1 SEC (22.0-34.0)
[2022-11-13 18:38] LABS: ALANINE AMINOTRANSFERASE,ALT 42 U/L (16-63); ALBUMIN 1.8 g/dL (3.4-5.0); ALKALINE PHOSPHATASE 167 U/L (46-116); ANION GAP 12.3 mEq/L (7-13); ASPARTATE AMNIOTRANSFERASE,AST 32 U/L (15-37); BILIRUBIN TOTAL 0.2 mg/dL (0.2-1.0); BLOOD UREA NITROGEN,BUN 22 mg/dL (7-18); BUN/CREATININE RATIO 11.7 (No establ ref range); C-REACTIVE PROTEIN 5.3 mg/dL (0.0-0.9); CALCIUM 8.1 mg/dL (8.5-10.1); CARBON DIOXIDE,CO2 22 mmol/L (21-32); CHLORIDE,CL 107 mmol/L (98-107); CREATININE 1.88 mg/dL (0.70-1.30); EST CRCL DRUG DOSING (CG) 53.39 mL/min; GLUCOSE RANDOM 297 mg/dL (70-99); MAGNESIUM 1.6 mg/dL (1.8-2.4); POTASSIUM,K 4.3 mmol/L (3.5-5.1); PROTEIN TOTAL,TP 5.6 g/dL (6.4-8.2); SODIUM,NA 137 mmol/L (136-145)
[2022-11-13 18:50] LABS: A/G RATIO 0.47; ESTIMATED GFR 45 mL/min (>=60)
[2022-11-13] MEDS ORDERED: Iopamidol 755 Mg/ML 100 ML Bottle IVPUSH ONE (18:57)
[2022-11-13] MEDS ORDERED: Sodium Chloride 0.9% 1,000 ML IV ONE (19:40)
[2022-11-13] MEDS ORDERED: Ketorolac 30 MG/ML SDV IVPUSH ONE (21:08)
[2022-11-13] MEDS ORDERED: Ciprofloxacin 500 MG Tab PO ONE (21:10)
== END 2022-11-13 22:11 | disposition home or self-care (01) ==
LOC: DL.ED 17:38
DX: J18.9 Pneumonia, unspecified organism (principal); E78.00 Pure hypercholesterolemia, unspecified; I10 Essential (primary) hypertension; E11.21 Type 2 diabetes mellitus with diabetic nephropathy; J45.909 Unspecified asthma, uncomplicated; Z79.4 Long term (current) use of insulin
CPT/HCPCS: 36415; 71045; 71260; 80053; 83605; 83735; 83880; 84145; 84484; 85025; 85379; 85610; 85730; 86140; 87040; 93005; 96374; 99285-25; A9270-GY; J1885; J3490; J7030; Q9967

== ENCOUNTER 2022-11-17 20:20 | Emergency (ER) | payer MEDICAID ==
[2022-11-17 21:10] LABS: BASOPHILS PERCENT AUTO 0.5 % (0.0-1.0); HEMATOCRIT 29.8 % (40.0-54.0); HEMOGLOBIN 9.9 g/dL (14.0-18.0); LYMPHOCYTES PERCENT AUTO 10.2 % (20.5-50.1); MEAN CORPUSCULAR HEMOGLOBIN 29.1 pg (27.0-34.0); MEAN CORPUSCULAR HGB CONC 33.2 g/dL (33.0-35.0); MEAN CORPUSCULAR VOLUME 87.6 fL (80-100); MONOCYTES PERCENT AUTO 10.5 % (2-8); NEUTROPHILS PERCENT AUTO 75.8 % (42.2-75.2); PLATELET COUNT,PLT 500 10^3/uL (150-450); WHITE BLOOD CELL COUNT,WBC 17.4 10^3/uL (5.0-10.0)
[2022-11-17] MEDS ORDERED: Furosemide 20 MG/2 ML VIAL IVPUSH ONE (21:32)
[2022-11-17 21:33] LABS: LACTIC ACID 0.9 mmol/L (0.4-2.0)
[2022-11-17 21:36] LABS: ALBUMIN 1.5 g/dL (3.4-5.0); ANION GAP 12.6 mEq/L (7-13); BILIRUBIN TOTAL 0.2 mg/dL (0.2-1.0); BUN/CREATININE RATIO 12.5 (No establ ref range); CALCIUM 8.2 mg/dL (8.5-10.1); CREATININE 3.19 mg/dL (0.70-1.30); EST CRCL DRUG DOSING (CG) 31.47 mL/min; POTASSIUM,K 4.6 mmol/L (3.5-5.1); PROTEIN TOTAL,TP 6.1 g/dL (6.4-8.2)
[2022-11-17 21:44] LABS: A/G RATIO 0.33; C-REACTIVE PROTEIN 34.4 mg/dL (0.0-0.9)
[2022-11-17] MEDS ORDERED: cefTRIAXone 2 GM Vial IVPUSH ONE (22:20)
[2022-11-17] MEDS ORDERED: Azithromycin 500 MG in Sodium Chloride 0.9% 250 ML IV ONE (22:20)
[2022-11-17 23:17] VITALS: BP 151/90; PULSE 111
== END 2022-11-17 23:27 ==
LOC: DL.ED 20:20
DX: J18.9 Pneumonia, unspecified organism (principal); J90 Pleural effusion, not elsewhere classified; R09.02 Hypoxemia; E88.09 Other disorders of plasma-protein metabolism, not elsewhere classified; R00.0 Tachycardia, unspecified; E87.1 Hypo-osmolality and hyponatremia; E87.79 Other fluid overload; N17.9 Acute kidney failure, unspecified; E11.65 Type 2 diabetes mellitus with hyperglycemia; E78.00 Pure hypercholesterolemia, unspecified; I10 Essential (primary) hypertension; J45.909 Unspecified asthma, uncomplicated; E11.21 Type 2 diabetes mellitus with diabetic nephropathy; Z79.4 Long term (current) use of insulin
CPT/HCPCS: 36415; 71045; 80053; 83605; 83880; 84145; 84484; 85025; 86140; 87040; 96365; 96375; 99285; J0456; J0696; J1940; J7050

== ENCOUNTER 2025-05-13 14:23 | Emergency (ER) | payer MEDICAID ==
[2025-05-13 14:50] LABS: PLATELET COUNT,PLT 333 10^3/uL (150-450); RED BLOOD CELL COUNT 2.33 10^6/uL (4.6-6.2); WHITE BLOOD CELL COUNT,WBC 9.1 10^3/uL (5.0-10.0)
[2025-05-13 14:54] VITALS: BP 172/83; PULSE 88
[2025-05-13 14:55] LABS: BASOPHILS PERCENT AUTO 0.4 % (0.0-1.0); EOSINOPHILS PERCENT AUTO 5.4 % (1.0-3.0); LYMPHOCYTES PERCENT AUTO 10.0 % (20.5-50.1); MONOCYTES PERCENT AUTO 8.5 % (2-8); NEUTROPHILS PERCENT AUTO 75.7 % (42.2-75.2)
[2025-05-13 15:02] LABS: ALANINE AMINOTRANSFERASE,ALT 40 U/L (16-63); ASPARTATE AMNIOTRANSFERASE,AST 41 U/L (15-37); BILIRUBIN TOTAL 0.4 mg/dL (0.2-1.0); BLOOD UREA NITROGEN,BUN 69 mg/dL (7-18); CARBON DIOXIDE,CO2 20 mmol/L (21-32); CHLORIDE,CL 104 mmol/L (98-107); CREATININE 7.79 mg/dL (0.70-1.30); GLUCOSE RANDOM 167 mg/dL (70-99); POTASSIUM,K 4.8 mmol/L (3.5-5.1); PROTEIN TOTAL,TP 5.9 g/dL (6.4-8.2); SODIUM,NA 136 mmol/L (136-145)
[2025-05-13 15:03] LABS: A/G RATIO 0.59; ESTIMATED GFR 8 mL/min (>=60); LACTIC ACID 0.7 mmol/L (0.4-2.0)
[2025-05-13 15:08] LABS: B-TYPE NATRIURETIC PEPTIDE,BNP 402 pg/ml (0-100)
[2025-05-13 15:18] LABS: EOSINOPHILS PERCENT MAN 6 % (1-3); LYMPHOCYTES PERCENT MAN 7 % (20-50); MONOCYTES PERCENT MAN 5 % (2-8); SEG NEUTROPHILS PERCENT MAN 82 % (42-75)
[2025-05-13] MEDS: Sodium Chloride 0.9% 10 ML Syringe FLUSH PRN (15:30)
[2025-05-13 15:37] LABS: IRON,FE 29 ug/dL (65-175)
[2025-05-13] MEDS: Magnesium Sulfate 2 GM/50 mL 2 GM in Premix Bag 1 BAG IV ONE (15:50)
[2025-05-13] MEDS: Albuterol 0.083% 2.5 MG/3 ML Neb Soln NEB ONE (15:55)
== END 2025-05-13 17:05 ==
LOC: DL.ED 14:23
DX: J18.9 Pneumonia, unspecified organism (principal); N17.9 Acute kidney failure, unspecified; I12.9 Hypertensive chronic kidney disease with stage 1 through stage 4 chronic kidney disease, or unspecified chronic kidney disease; E78.00 Pure hypercholesterolemia, unspecified; J45.909 Unspecified asthma, uncomplicated; E11.40 Type 2 diabetes mellitus with diabetic neuropathy, unspecified; E11.22 Type 2 diabetes mellitus with diabetic chronic kidney disease; N18.9 Chronic kidney disease, unspecified; Z79.899 Other long term (current) drug therapy; Z79.4 Long term (current) use of insulin; Z79.890 Hormone replacement therapy; Z79.82 Long term (current) use of aspirin
CPT/HCPCS: 36415; 71046; 80053; 82728; 83540; 83550; 83605; 83735; 83880; 85025; 86140; 87040; 93005; 93010; 94640; 96365; 96367; 96375; 99285; J0456; J0696; J3475; J7030; J7050; J7613; J7620; A9270-GY